=== PATIENT | female | born 2000 ===

== ENCOUNTER 2020-10-26 17:35 | Emergency (ER) | payer OTHER ==
--- NOTE | 2020-10-26 18:07 | Emergency Department Report ---
Blank Doc - Documentation Documentation: 20-year-old female with asthma department complaining of possible spontaneous miscarriage. She discovered her on yesterday and later on that night began to have an increased amount of bleeding and now having cramping today states she is going to do more than five pads. Reports having sweats last night. Low energy This initial assessment/diagnostic orders/clinical plan/treatment(s) is/are subject to change based on patients health status, clinical progression and re- assessment by fellow clinical providers in the ED. Further treatment and workup at subsequent clinical providers discretion. Patient/guardian urged not to elope from the ED as their condition may be serious if not clinically assessed and managed. Initial orders include: Plan to evaluate her hCG quant coags and and her blood counts if hCG is elevated we will move forward with an ultrasound
[2020-10-26 19:16] LABS: Basophils # (Auto) 0.1 K/mm3 (0.0-0.1); Basophils % (Auto) 0.5 % (0.0-1.8); Eosinophils # (Auto) 0.1 K/mm3 (0.0-0.4); Eosinophils % (Auto) 0.6 % (0.0-4.3); Hematocrit 44.9 % (30.3-42.9); Lymphocytes # (Auto) 1.8 K/mm3 (1.2-5.4); Mean Corpuscular HGB Conc 33 % (30-34); Mean Corpuscular Volume 90 fl (79-97); Monocytes # (Auto) 0.8 K/mm3 (0.0-0.8); Platelet Count 267 K/mm3 (140-440); Red Blood Count 4.97 M/mm3 (3.65-5.03); Red Cell Distribution Width 13.4 % (13.2-15.2)
[2020-10-26 19:27] LABS: INR 1.01 (0.87-1.13)
--- NOTE | 2020-10-26 19:55 | Emergency Department Report ---
ED Female HPI - General Chief complaint: Vaginal Bleeding Stated complaint: MISCARRAGE Time Seen by Provider: 10/26/20 18:10 Source: patient Mode of arrival: Ambulatory Limitations: No Limitations - History of Present Illness Initial comments: 20-year-old male and female presents emerged department complaining of vaginal bleeding going through about 5 pads since the onset of her bleeding last night. She reports having a prior positive test on yesterday. Mild cramping to her pelvic area but no suspicion of an STD no urinary symptoms. Ports no fever, chills, sweats. No diarrhea no constipation. -: Gradual Location: suprapubic Radiation: non-radiating Severity: mild Consistency: constant Improves with: none Worsens with: none Are you Now?: Yes Associated Symptoms: vaginal bleeding. denies: abdominal pain, nausea/vomiting, loss of appetite, dysuria, hematuria - Related Data Allergies Allergy/AdvReac Type Severity Reaction Status Date / Time No Known Allergies Allergy Unverified 10/26/20 17:50 ED Review of Systems ROS: Stated complaint: MISCARRAGE Other details as noted in HPI Comment: All other systems reviewed and negative ED Past Medical Hx - Past Medical History Previous Medical History?: No - Surgical History Past Surgical History?: No - Social History Smoking Status: Never Smoker Substance Use Type: None ED Physical Exam - General Limitations: No Limitations General appearance: alert, in no apparent distress - Head Head exam: Present: atraumatic, normocephalic - Eye Eye exam: Present: normal appearance, PERRL Pupils: Present: normal accommodation - ENT ENT exam: Present: normal exam, normal orophraynx, mucous membranes moist, TM's normal bilaterally - Neck Neck exam: Present: normal inspection, full ROM - Respiratory Respiratory exam: Present: normal lung sounds bilaterally, chest wall tenderness. Absent: respiratory distress - Cardiovascular Cardiovascular Exam: Present: regular rate, normal rhythm. Absent: systolic murmur, diastolic murmur, rubs, gallop - GI/Abdominal GI/Abdominal exam: Present: soft, normal bowel sounds. Absent: distended, tenderness, hyperactive bowel sounds, hypoactive bowel sounds - Extremities Exam Extremities exam: Present: normal inspection, full ROM, normal capillary refill - Back Exam Back exam: Present: normal inspection. Absent: CVA tenderness (R), CVA tenderness (L) - Neurological Exam Neurological exam: Present: alert, oriented X3, CN II-XII intact - Psychiatric Psychiatric exam: Present: normal affect, normal mood - Skin Skin exam: Present: warm, dry, intact, normal color. Absent: rash ED Course Vital Signs 10/26/20 17:50 Temperature 98.4 F Pulse Rate 86 Respiratory 16 Rate Blood Pressure 97/63 O2 Sat by Pulse 97 Oximetry ED Medical Decision Making - Lab Data Result diagrams: 10/26/20 18:47 Lab Results 10/26/20 10/26/20 10/26/20 Range/Units 18:47 18:47 18:47 WBC 11.0 (4.5-11.0) K/mm3 RBC 4.97 (3.65-5.03) M/mm3 Hgb 15.0 H (10.1-14.3) gm/dl Hct 44.9 H (30.3-42.9) % MCV 90 (79-97) fl MCH 30 (28-32) pg MCHC 33 (30-34) % RDW 13.4 (13.2-15.2) % Plt Count 267 (140-440) K/mm3 Lymph % (Auto) 16.0 (13.4-35.0) % Chase % (Auto) 7.0 (0.0-7.3) % Eos % (Auto) 0.6 (0.0-4.3) % Baso % (Auto) 0.5 (0.0-1.8) % Lymph # (Auto) 1.8 (1.2-5.4) K/mm3 Chase # (Auto) 0.8 (0.0-0.8) K/mm3 Eos # (Auto) 0.1 (0.0-0.4) K/mm3 Baso # (Auto) 0.1 (0.0-0.1) K/mm3 Seg Neutrophils % 75.9 H (40.0-70.0) % Seg Neutrophils # 8.4 H (1.8-7.7) K/mm3 PT 13.1 (12.2-14.9) Sec. INR 1.01 (0.87-1.13) HCG, Quant < 2 (0-4) mIU/mL Critical care attestation.: If time is entered above; I have spent that time in minutes in the direct care of this critically ill patient, excluding procedure time. ED Disposition Clinical Impression: Vaginal bleeding, Negative test Disposition: TO HOME OR SELFCARE Is pt being admited?: No Does the pt Need Aspirin: No Condition: Stable Instructions: Dysfunctional Uterine Bleeding Additional Instructions: Please follow-up with your primary care or [facility] to reevaluate your hCG in 3 to 4 days currently there is no hCG levels detected indicating no Referrals: DARIUS DIAZ MD [Primary Care Provider] - 3-5 Days [facility] [Provider Group] - 3-5 Days
[2020-10-26 23:56] VITALS: BP 105/67
== END 2020-10-26 21:00 | disposition home or self-care (01) ==
LOC: ED 17:35
DX: N93.9 Abnormal uterine and vaginal bleeding, unspecified (principal); R10.2 Pelvic and perineal pain; Z32.02 Encounter for pregnancy test, result negative
CPT/HCPCS: 36415; 84702; 85025; 85610